=== PATIENT | male | born 2000 | race Caucasian/White ===

== ENCOUNTER → 2020-05-27 13:08 | Outpatient (BNVA) | payer BC, SELFPAY | PROVIDERS: Family Provider Family Medicine; Visit Provider Nurse Practitioner Family | DX: J02.9 Acute pharyngitis, unspecified (principal) | CPT/HCPCS: 87071; 87880 ==

== ENCOUNTER 2020-07-08 20:00 | Emergency (ER) | payer SELFPAY ==
[2020-07-08 20:41] VITALS: BP 136/72; PULSE 90; RESP 16; TEMP 36.4; O2SAT 100; BMI 22.1
--- NOTE | 2020-07-08 21:08 | XR_ITS ---
WS: [id number] EXAM: AP CHEST: PORTABLE UPRIGHT DATE OF EXAM: 07/08/2020, 2108 hours COMPARISON: NONE HISTORY: Patient is 20 years old with atraumatic chest pain that started today. FINDINGS: The cardiac silhouette is normal in size. The mediastinal contours are normal. The pulmonary vas cularity is normal. The lungs are clear of infiltrate. There is no effusion or pneumothorax. No ac [place] bony abnormality is seen. XR/XR chest 1V portable [id number] IMPRESSION: No acute pulmonary disease.
--- NOTE | 2020-07-08 21:08 | ECG_ITS ---
[facility] Test Date: 2020-07-08 Pat Name: Gilbert Melchor Department: Room: Gender: Male Strategy Analyst: : 2000 Requested By: Curt Chopra Order Number: [id number] Sekou MD: Jamie Lehman M.D. Measurements Intervals [place] Rate: 76 P: 68 MO: 158 QRS: 16 QRSD: 93 T: 64 QT: 352 QTc: 398 Interpretive Statements SINUS RHYTHM WITH SINUS ARRHYTHMIA MODERATE ST DEPRESSION [0.05+ mV ST DEPRESSION] No previous ECG available for comparison Electronically Signed On 07-09-2020 18:32:44 CDT by Jamie Lehman M.D. [email or web address].Smart Adventure/store/NU/[id number] f
[2020-07-08] MEDS: sodium chloride 0.9% 1,000 ML 999 ML IV (21:16)
[2020-07-08 21:24] LABS: Basophils # 0.1 10^3/uL (0.0-0.1); Basophils % 0.8 %; Eosinophils # 0.3 10^3/uL (0.0-0.8); Eosinophils % 3.2 %; Hematocrit 46.8 % (42.0-52.0); Hemoglobin 15.6 g/dL (11.7-16.6); Lymphocytes # 1.9 10^3/uL (0.8-4.8); Lymphocytes % 24.2 %; Mean Corpuscular HGB Conc 33.3 g/dL (30.0-36.0); Mean Corpuscular Hemoglobin 29.5 pg (28.0-34.0); Mean Corpuscular Volume 88.5 fL (80-94); Mean Platelet Volume 9.2 fL (7.4-10.4); Monocytes # 0.5 10^3/uL (0.2-0.9); Monocytes % 6.4 %; Neutrophils # 5.07 10^3/uL (1.8-7.7); Neutrophils % 65.3 %; Nucleated Red Blood Cells % 0 %; Platelet Count 212 10^3/cmm (130-400); Red Blood Count 5.29 10^6/uL (4.1-5.3); White Blood Count 7.8 10^3/uL (4.0-10.0)
[2020-07-08 21:45] LABS: D Dimer <= 0.27 ug/mIFEU (0-0.59)
[2020-07-08 21:48] LABS: Alanine Aminotransferase 20 U/L (0-41); Albumin Level 4.8 g/dL (3.5-5.2); Alkaline Phosphatase 81 IU/L (40-130); Anion Gap 13.7 (5-19); Aspartate Amino Transferase 17 U/L (0-40); Blood Urea Nitrogen 13 mg/dL (6-20); Calcium 8.7 mg/dL (8.5-10.5); Carbon Dioxide 26 mmol/L (22-29); Chloride 104 mmol/L (98-107); Creatine Phosphokinase 115 U/L (39-308); Globulin 2.9 g/dL (1.3-4.6); Glomerular Filtration Rate 105.5 mL/min (90-130); Glucose 105 mg/dL (65-115); Osmolality Calculated 287 mOsm/kg (285-295); Potassium 3.7 mmol/L (3.5-5.1); Sodium 140 mmol/L (136-145); Total Bilirubin 0.9 mg/dL (0.15-1.2); Total Protein 7.7 g/dL (6.6-8.7)
[2020-07-08 21:50] LABS: Troponin(5th) Baseline 6 ng/L (0-15)
[2020-07-08 21:53] VITALS: BP 122/68; PULSE 88; RESP 18; O2SAT 100
--- NOTE | 2020-07-08 22:02 | ED_ITS ---
HPI - Chest Pain General: Chief Complaint: Chest Pain Stated Complaint: chest pressure Time Seen by Provider: 07/08/20 20:51 History of Present Illness: HPI narrative: 20-year-old healthy male presents after period of heart palpitations, discomfort in his chest, and the feeling that he was going to pass out for a couple of minutes while he was working. 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 He is not had these sensations before, although he does note some occasional numbness in his left arm.. He denies any recent illness, including fever, cough, etc. He was not sick at his stomach. He was mildly short of breath. Symptoms are resolved now. MD complaint: chest discomfort Onset (ago): minute(s) Timing of current episode: now resolved Prior episodes: No Onset: during rest (Not complete rest) Pain location: substernal and left chest Pain radiation: left arm Quality: heaviness Relieving factors: nothing Exacerbating factors: nothing Associated symptoms: Reports palpitations; Deny abdominal pain, dyspnea, fever(s), leg edema, nausea, syncope or vomiting Treatment prior to arrival: none Review of Systems Const: Denies: fever(s) Eyes: Reports: change in vision ENMT: Denies: swelling of lips/tongue, bleeding gums, post nasal drip or sinus pain Card: Reports: palpitations; Denies: syncope Resp: Denies: dyspnea GI: Denies: abdominal pain, nausea or vomiting : Denies: difficulty urinating Musc: Denies: neck pain, back pain, joint redness or joint warmth Skin/Breast: Denies: rash, pruritus or erythema Neuro: Reports: dizziness; Denies: headache(s), vertigo or confusion Psych: Denies: anxiety PFS ED PFSH: Social History (Updated 05/27/20 @ 12:44 by Amarilis Fernandes LPN) Smoking and tobacco status: never smoked Alcohol intake: never Physical Exam Const: GENERAL APPEARANCE: well developed ORIENTATION/CONSCIOUSNESS: Yes oriented to person, Yes oriented to place and Yes oriented to time HENMT: COMMON NORMALS: normocephalic, external ears normal and Normal external nose present HEAD & SCALP: normocephalic FACE & SINUS: normal facial exam NOSE: Normal external nose present and No nasal discharge present EXTERNAL EAR: Yes external ears normal MOUTH: tongue normal Eye: COMMON NORMALS: Equal, round and reactive pupils present, EOMs intact bilaterally and conjunctivae normal EYELID: eyelids normal CONJUNCTIVA: Yes conjunctivae normal PUPIL: Yes Equal, round and reactive pupils present Neck/C-Spine: GENERAL: No tracheal deviation Chest: COMMONS NORMALS: normal inspection of the chest CHEST: No tenderness Resp: COMMON NORMALS: clear to auscultation bilaterally EFFORT & INSPECTION: No tachypneic, No respiratory distress, No retractions, No uses accessory muscles and No tracheal deviation AUSCULTATION: clear to auscultation bilaterally, no rhonchi, no wheezes and lung sounds not diminished Cardio: COMMON NORMALS: regular rate and regular rhythm RATE: regular rate RHYTHM: regular rhythm HEART SOUNDS: no murmurs PERIPHERAL PULSES: radial pulses present GI: INSPECTION: No abdominal distension AUSCULTATION: No Hyperactive bowel sounds present and No Hypoactive bowel sounds present PALPATION: No Guarding due to palpation present (GI) and No Rigid due to palpation PERCUSSION: no dullness to percussion and no tympanic to percussion Neuro: SENSORIUM/ORIENTATION: Yes oriented to person, Yes oriented to place and Yes oriented to time Psych: COMMON NORMALS: mental status grossly normal Skin: COMMON NORMALS: no rashes or lesions noted GENERAL SKIN EXAM: no r ashes or lesions noted Course Vital Signs: Vital signs: Vital Signs Temperature 97.5 F L 07/08/20 20:41 Pulse Rate 88 07/08/20 22:32 Respiratory Rate 18 07/08/20 22:32 Blood Pressure 122/68 07/08/20 22:32 Pulse Oximetry 100 07/08/20 22:32 MDM - Chest Pain MDM Narrative: Medical decision making narrative: Symptoms are resolved. In the differential would be a period of SVT that self resolved. Others include anxiety, or a different dysrhythmia. His d-dimer screen is negative. His EKG shows a sinus arrhythmia and is otherwise essentially normal. His rate is 75 he has a normal axis. His chest x-ray is normal. He will be allowed home for outpatient follow-up. Lab Data: Labs: Lab Results 07/08/20 07/08/20 07/08/20 Range/Units 21:10 21:10 21:10 WBC 7.8 (4.0-10.0) 10^3/ uL RBC 5.29 (4.1-5.3) 10^6/u L Hgb 15.6 (11.7-16.6) g/dL Hct 46.8 (42.0-52.0) % MCV 88.5 (80-94) fL MCH 29.5 (28.0-34.0) pg MCHC 33.3 (30.0-36.0) g/dL RDW 12.0 L (12.1-15.1) % Plt Count 212 (130-400) 10^3/c mm MPV 9.2 (7.4-10.4) fL Neut % (Auto) 65.3 % Lymph % (Auto) 24.2 % [place] % (Auto) 6.4 % Eos % (Auto) 3.2 % Baso % (Auto) 0.8 % Neut # (Auto) 5.07 (1.8-7.7) 10^3/u L Lymph # (Auto) 1.9 (0.8-4.8) 10^3/u L [place] # (Auto) 0.5 (0.2-0.9) 10^3/u L Eos # (Auto) 0.3 (0.0-0.8) 10^3/u L Baso # (Auto) 0.1 (0.0-0.1) 10^3/u L Nucleated RBC % (a uto) 0 % Nucleated RBCs # 0.0 /100WBC D-Dimer <= 0.27 (0-0.59) ug/mIFE U Sodium 140 (136-145) mmol/L Potassium 3.7 (3.5-5.1) mmol/L Chloride 104 (98-107) mmol/L Carbon Dioxide 26 (22-29) mmol/L Anion Gap 13.7 (5-19) BUN 13 (6-20) mg/dL Creatinine 0.9 (0.7-1.2) mg/dL GFR Calculation 105.5 (90-130) mL/min Glucose 105 (65-115) mg/dL Calculated Osmolal ity 287 (285-295) mOsm/k g Calcium 8.7 (8.5-10.5) mg/dL Total Bilirubin 0.9 (0.15-1.2) mg/dL AST 17 (0-40) U/L ALT 20 (0-41) U/L Alkaline Phosphata se 81 (40-130) IU/L Creatine Kinase 115 (39-308) U/L Troponin T Baselin e (0-15) ng/L Total Protein 7.7 (6.6-8.7) g/dL Albumin 4.8 (3.5-5.2) g/dL Globulin 2.9 (1.3-4.6) g/dL 07/08/20 Range/Units 21:10 WBC (4.0-10.0) 10^3/ uL RBC (4.1-5.3) 10^6/u L Hgb (11.7-16.6) g/dL Hct (42.0-52.0) % MCV (80-94) fL MCH (28.0-34.0) pg MCHC (30.0-36.0) g/dL RDW (12.1-15.1) % Plt Count (130-400) 10^3/c mm MPV (7.4-10.4) fL Neut % (Auto) % Lymph % (Auto) % [place] % (Auto) % Eos % (Auto) % Baso % (Auto) % Neut # (Auto) (1.8-7.7) 10^3/u L Lymph # (Auto) (0.8-4.8) 10^3/u L [place] # (Auto) (0.2-0.9) 10^3/u L Eos # (Auto) (0.0-0.8) 10^3/u L Baso # (Auto) (0.0-0.1) 10^3/u L Nucleated RBC % (a uto) % Nucleated RBCs # /100WBC D-Dimer (0-0.59) ug/mIFE U Sodium (136-145) mmol/L Potassium (3.5-5.1) mmol/L Chloride (98-107) mmol/L Carbon Dioxide (22-29) mmol/L Anion Gap (5-19) BUN (6-20) mg/dL Creatinine (0.7-1.2) mg/dL GFR Calculation (90-130) mL/min Glucose (65-115) mg/dL Calculated Osmolal ity (285-295) mOsm/k g Calcium (8.5-10.5) mg/dL Total Bilirubin (0.15-1.2) mg/dL AST (0-40) U/L ALT (0-41) U/L Alkaline Phosphata se (40-130) IU/L Creatine Kinase (39-308) U/L Troponin T Baselin e 6 (0-15) ng/L Total Protein (6.6-8.7) g/dL Albumin (3.5-5.2) g/dL Globulin (1.3-4.6) g/dL Discharge Plan Discharge Patient Disposition: Home Clinical Impression: Heart palpitations, Near syncope Condition: Stable Prescriptions: No Action No Known Home Medications RF: 0 Discharge Orders: Discharge Order (Routine); Ordered 07/08/20 Ordered By: Curt Zheng Referrals: Akash Mata MD [Primary Care Provider] - 4-7 days Discharge Diet: Usual diet Discharge Activity: Increase activity as tolerated Patient Instructions: Palpitations (ED), Near Syncope (ED) Activity Restrictions/Additional Instructions: Return for repeated episodes of a pounding heart, chest discomfort, shortness of breath, passing out, or nearly passing out. See your doctor in follow-up, as he may wish to perform other outpatient tests if your symptoms continue. Discharge Date/Time: 07/08/20 22:33 Coding Level of Care Code ED Fitness Teacher for Johana Fwd Exam Comprehensive
[2020-07-08 22:32] VITALS: BP 122/68; PULSE 88; RESP 18; O2SAT 100
== END 2020-07-08 22:33 | disposition home or self-care (01) ==
PROVIDERS: Emergency Provider Emergency Medicine; PCP Family Medicine
DX: R00.2 Palpitations (principal); R55 Syncope and collapse
CPT/HCPCS: 12345; 71045; 80053; 82550; 84484; 85025; 85378; 93005; 96360; 99283; 99284; J7030

== ENCOUNTER → 2020-09-26 11:51 | Outpatient (BNVA) | payer SELFPAY | PROVIDERS: PCP Family Medicine; Visit Provider Nurse Practitioner | DX: J02.0 Streptococcal pharyngitis (principal) | CPT/HCPCS: 87071; 87880 ==

== ENCOUNTER 2020-10-09 07:32 | Observation (INO) | payer SELFPAY ==
[2020-10-09] VITALS (22 sets, daily range): BP systolic 103–161; BP diastolic 61–94; PULSE 77–128; RESP 14–20; TEMP 36.6–38; O2SAT 94–99; BMI 23.6
--- NOTE | 2020-10-09 07:54 | XR_ITS ---
WS: [id number] ABDOMEN 1 VIEW(S) HISTORY: rlq PAIN ? STONE COMPARISON: None available. Normal bowel gas pattern. No suspicious calcifications or masses. No bone abnormality. XR/XR KUB [id number] IMPRESSION: Normal abdomen.
--- NOTE | 2020-10-09 07:55 | ED_ITS ---
HPI - Abdominal Pain General: Chief Complaint: Abdominal Pain Stated Complaint: ABD pain Time Seen by Provider: 10/09/20 07:34 Source: patient Mode of arrival: ambulatory Limitations: no limitations History of Present Illness: HPI narrative: 20-year-old pleasant, healthy- appearing male presents to the ED emergency department with acute onset of right lower quadrant pain. He reports sudden onset, occurred around midnight last night. States pain feels like bad gas, he denies diarrhea or fever, reports chills, reports nausea but due to pain. He denies pain upon exam as he is at rest, rest helps relieve pain. He denies history of abdominal surgeries. Reports last ate at 11 PM had a small sip of water this morning. Did not take [id number] medication for symptom relief. Reports history of dysuria as a teenager, reports went to [place] for work-up without acute findings with resolution of symptoms. He is not able to give detailed information of this history. MD elicited complaint: abdominal pain and flank pain Pertinent past history: past UTI Onset (ago): hour(s) (7-8) Pain Consistency: intermittent Location: RLQ and R flank Severity: moderate Quality: aching and dull Radiation: RLQ and R flank Relieving factors: rest Associated Symptoms: Reports chills and nausea; Denies change in bowel habits, constipation, diarrhea, dysuria, fever(s) and heartburn Review of Systems General: Reports: 10 or more systems reviewed and unremarkable except in HPI and below Const: Reports: chills; Denies: fever(s), body aches, change in appetite, fatigue or malaise Eyes: Denies: blurry vision or eye redness ENMT: Denies: throat pain, dental pain or disequilibrium Card: Denies: chest pain, palpitations or irregular heart rhythm Resp: Denies: dyspnea, productive cough, non-productive cough or wheezing GI: Reports: abdominal pain (rlq) and nausea; Denies: heartburn, diarrhea, constipation or change in bowel habits : Denies: difficulty urinating, dysuria or difficulty starting urination Musc: Denies: back pain Skin/Breast: Denies: rash or pruritus Neuro: Denies: headache(s), weakness in extremities or behavioral changes Psych: Denies: anxiety or depression Estu[place]/Lymph: Denies: easy bruising PFSH ED PFSH: Social History Smoking and tobacco status: never smoked Alcohol intake: never Physical Exam Const: COMMON NORMALS: no acute distress, patient oriented x3, healthy appearing and alert GENERAL APPEARANCE: cooperative, comfortable and well hydrated HENMT: COMMON NORMALS: normocephalic, Normal external nose present and moist oral mucous membranes HEAD & SCALP: normocephalic NOSE: Normal external nose present Eye: COMMON NORMALS: Equal, round and reactive pupils present and EOMs intact bilaterally GENERAL EYE: appearance normal, both eyes and all related structures PUPIL: Yes Equal, round and reactive pupils present Neck/C-Spine: COMMON NORMALS: full ROM and no lymphadenopathy GENERAL: Yes normal visual inspection and Yes trachea midline CERVICAL SPINE: Yes cervical ROM normal Lymph: LYMPHATIC: no lymphadenopathy noted Chest: COMMONS NORMALS: normal inspection of the chest and normal palpation of entire chest wall Resp: COMMON NORMALS: normal respiratory effort, No retractions, No use of accessory muscles and clear to auscultation bilaterally EFFORT & INSPECTION: Yes able to speak in complete sentences AUSCULTATION: clear to auscultation bilaterally Cardio: COMMON NORMALS: regular rhythm, S1 normal heart sound present, S2 normal heart sound present and Peripheral pulses 2+ throughout RHYTHM: regular rhythm HEART SOUNDS: S1 normal heart sound present and S2 normal heart sound present PERIPHERAL PULSES: Peripheral pulses 2+ throughout GI: COMMON NORMALS: Normal to inspection, nondistended, normoactive bowel sounds present and Soft to palpation INSPECTION: Yes normal to inspection, No abdominal distension, No incision, No central obesity, No scar and No visible herniation AUSCULTATION: Yes normoactive bowel sounds PALPATION: Yes Soft to palpation, Yes Tenderness to palpation present (GI) Details: RLQ, No Hepatosplenomegaly present, No Hernia present, Yes Rebound tenderness present and Yes Other GI palpation findings present (Positive Stepan, positive McBurney's, negative Ryan's) : BLADDER/KIDNEY EXAM: Yes bladder normal to palpation Back/Pelvis: COMMON NORMALS: thoracic and lumbar spine normal to inspection, no thoracic nor lumbar tenderness, thoraco-lumbar ROM normal and straight leg raise negative bilaterally GENERAL BACK: Yes CVA tenderness CVA tenderness: right Extremity: COMMON NORMALS: normal to inspection and capillary refill normal Neuro: COMMON NORMALS: patient oriented x3 and no focal motor deficits SENSORIUM/ORIENTATION: Yes alert Psych: COMMON NORMALS: mental status grossly normal, Normal thought process present and cooperative ACTIVITY/MOTOR BEHAVIOR: Yes appropriate eye contact THOUGHT PROCESS: Normal thought process present Skin: COMMON NORMALS: no rashes or lesions noted and turgor normal GENERAL SKIN EXAM: no rashes or lesions noted and turgor normal Course Consultations: Consultation #1: Dr Mahtew, serology and CT results indicating appendicitis discussed, advised to admit to observation under his direction, lactated Ringer's 1 L bolus then 150 mL/h, Zosyn 3.375 every 8 hours, patient to be n.p.o. status with appropriate pain control. Time: 09:05 Vital Signs: Vital signs: Vital Signs Temperature 100.4 F H 10/09/20 12:37 Pulse Rate 128 H 10/09/20 12:37 Respiratory Rate 20 H 10/09/20 12:37 Blood Pressure 132/83 10/09/20 12:37 Pulse Oximetry 99 10/09/20 12:37 MDM - Abdominal Pain Differential Diagnosis: Differential diagnosis abdominal pain: Likely abdominal pain, acute appendicitis and calculus of kidney Lab Data: Labs: Lab Results 10/09/20 10/09/20 10/09/20 Range/Units 08:05 08:05 08:15 WBC 14.6 H (4.0-10.0) 10^3/ uL RBC 5.25 (4.1-5.3) 10^6/u L Hgb 15.7 (11.7-16.6) g/dL Hct 46.3 (42.0-52.0) % MCV 88.2 (80-94) fL MCH 29.9 (28.0-34.0) pg MCHC 33.9 (30.0-36.0) g/dL RDW 11.7 L (12.1-15.1) % Plt Count 186 (130-400) 10^3/c mm MPV 9.1 (7.4-10.4) fL Neut % (Auto) 85.0 % Lymph % (Auto) 8.0 % [place] % (Auto) 5.9 % Eos % (Auto) 0.6 % Baso % (Auto) 0.2 % Neut # (Auto) 12.42 H (1.8-7.7) 10^3/u L Lymph # (Auto) 1.2 (0.8-4.8) 10^3/u L [place] # (Auto) 0.9 (0.2-0.9) 10^3/u L Eos # (Auto) 0.1 (0.0-0.8) 10^3/u L Baso # (Auto) 0.0 (0.0-0.1) 10^3/u L Nucleated RBC % (a uto) 0 % Nucleated RBCs # 0.0 /100WBC Sodium 139 (136-145) mmol/L Potassium 3.5 (3.5-5.1) mmol/L Chloride 101 (98-107) mmol/L Carbon Dioxide 26 (22-29) mmol/L Anion Gap 15.5 (5-19) BUN 10 (6-20) mg/dL Creatinine 0.9 (0.7-1.2) mg/dL GFR Calculation 105.5 (90-130) mL/min Glucose 148 H (65-115) mg/dL Calculated Osmolal ity 290 (285-295) mOsm/k g Calcium 9.1 (8.5-10.5) mg/dL Total Bilirubin 0.7 (0.15-1.2) mg/dL AST 25 (0-40) U/L ALT 37 (0-41) U/L Alkaline Phosphata se 85 (40-130) IU/L Total Protein 7.1 (6.6-8.7) g/dL Albumin 4.4 (3.5-5.2) g/dL Globulin 2.7 (1.3-4.6) g/dL Lipase 21 (13-60) U/L Urine Color Yellow (Yellow) Urine Appearance Clear (CLEAR) Urine pH 5 (5-7) Ur Specific Gravit y 1.020 (1.005-1.030) Urine Protein Neg (Negative) Urine Glucose (UA) Norm (Normal) Urine Ketones 1+ H (Negative) Urine Blood Neg (Negative) Urine Nitrate Negative (Negative) Urine Bilirubin Neg (Negative) Urine Urobilinogen 1 H (Negative) mg/dL Ur Leukocyte Kymberly ase Negative (Negative) Imaging Data ^: KUB: Radiologist's impression: [address] [place] [address] XRay Report Signed Patient: Gilbert Melchor Unit #: [id number] : 2000 Age/Sex: 20 / M ADM Date: 10/09/20 Loc: ER Room/Bed: Attending Dr: Ordering Provider/Ordering MD: Priscila Cruz Date of Service: 10/09/20 Procedure(s): XR KUB [id number] Accession Number(s): [id number] Report Number: [id number] WS: [id number] ABDOMEN 1 VIEW(S) HISTORY: rlq PAIN ? STONE COMPARISON: None available. Normal bowel gas pattern. No suspicious calcifications or masses. No bone abnormality. XR/XR KUB [id number] IMPRESSION: Normal abdomen. Dictated By: Barbara Rodriguez DO Signed By: Barbara Rodriguez DO Signed Date/Time: 10/09/20814 DD/ 4 CT Abd/Pel: Radiologist's impression: [place] [address] CT Scan Report Signed Patient: Gilbert Melchor Unit #: [id number] : 2000 Age/Sex: 20 / M ADM Date: Loc: ER Room/Bed: Attending Dr: Ordering Provider/Ordering MD: Priscila Cruz Date of Service: 10/09/20 Procedure(s): CT abdomen pelvis w con* [id number] Accession Number(s): [id number] Report Number: [id number] WS: [id number] CT ABDOMEN AND PELVIS WITH CONTRAST HISTORY: RLQ pain, ? Appendicitis vs small stone TECHNIQUE: Imaging performed of the abdomen and pelvis with IV contrast. Single phase imaging of the abdomen. Coronal and sagittal reformats are submitted. All CT scans at [facility] use at least one of these dose optimization techniques: automated exposure control; mA and/or kV adjustment per patient size (includes targeted exams where dose is matched to clinical indication); or iterative reconstruction. IV CONTRAST: Omnipaque 300; 95 mL IV. Oral contrast: No DLP: 366.06 mGy.cm COMPARISON: 06/07/2009 Lower thorax: Lung bases are clear. Heart is normal size. No hiatal hernia. Liver/biliary system: Normal size with no intrahepatic dilatation. Gallbladder: Normal. No gallstones or wall thickening. No pericholecystic fluid. Pancreas: Normal. Spleen: 12.7 cm in length. No mass. Adrenal glands: Normal. Right kidney: Normal. Left kidney: Normal. Aorta: Normal. Lymphadenopathy: None. Free fluid: There is a very small amount of fluid in the RIGHT lower quadrant and central pelvis. GI tract: Hyperemic dilated appendix. Appendix measures 8.6 mm with mild periappendiceal stranding. No abscess. Abdominal wall: Unremarkable abdominal wall. No hernia. Pelvis: Normal. Bones: Thoracolumbar scoliosis. CT/CT abdomen pelvis w con* [id number] IMPRESSION: 1. Acute appendicitis without evidence for rupture or abscess. 2. No renal stone or obstruction. Dictated By: Barbara Rodriguez DO Signed By: Barbara Rodriguez DO Signed Date/Time: 10/09/20 0859 DD/ 0855 Discharge Plan Discharge Condition: Good Coding Level of Care Code ED Sales Support Administrator for Chg Fwd Exam Comprehensive
[2020-10-09 08:09] LABS: Basophils % 0.2 %; Eosinophils # 0.1 10^3/uL (0.0-0.8); Eosinophils % 0.6 %; Hematocrit 46.3 % (42.0-52.0); Hemoglobin 15.7 g/dL (11.7-16.6); Lymphocytes # 1.2 10^3/uL (0.8-4.8); Mean Corpuscular HGB Conc 33.9 g/dL (30.0-36.0); Mean Corpuscular Hemoglobin 29.9 pg (28.0-34.0); Mean Corpuscular Volume 88.2 fL (80-94); Mean Platelet Volume 9.1 fL (7.4-10.4); Monocytes # 0.9 10^3/uL (0.2-0.9); Monocytes % 5.9 %; Neutrophils # 12.42 10^3/uL (1.8-7.7); Nucleated Red Blood Cells % 0 %; Platelet Count 186 10^3/cmm (130-400); Red Blood Count 5.25 10^6/uL (4.1-5.3); Red Cell Distribution Width 11.7 % (12.1-15.1); White Blood Count 14.6 10^3/uL (4.0-10.0)
--- NOTE | 2020-10-09 08:12 | CT_ITS ---
WS: [id number] CT ABDOMEN AND PELVIS WITH CONTRAST HISTORY: RLQ pain, ? Appendicitis vs small stone TECHNIQUE: Imaging performed of the abdomen and pelvis with IV contrast. Single phase imaging of the abdomen. Coronal and sagittal reformats are submitted. All CT scans at [facility] use at least one of these dose optimization techniques: automated exposure control; mA and/or kV adjustment per patient size (includes targeted exams where dose is matched to clinical indication); or iterativ e reconstruction. IV CONTRAST: Omnipaque 300; 95 mL IV. Oral contrast: No DLP: 366.06 mGy.cm COMPARISON: 06/07/2009 Lower thorax: Lung bases are clear. Heart is normal size. No hiatal hernia. Liver/biliary system: Normal size with no intrahepatic dilatation. Gallbladder: Normal. No gallstones or wall thickening. No pericholecystic fluid. Pancreas: Normal. Spleen: 12.7 cm in length. No mass. Adrenal glands: Normal. Right kidney: Normal. Left kidney: Normal. Aorta: Normal. Lymphadenopathy: None. Free fluid: There is a very small amount of fluid in the RIGHT lower quadrant and central pelvis. GI tract: Hyperemic dilated appendix. Appendix measures 8.6 mm with mild periappendiceal stranding. N o abscess. Abdominal wall: Unremarkable abdominal wall. No hernia. Pelvis: Normal. Bones: Thoracolumbar scoliosis. CT/CT abdomen pelvis w con* [id number] IMPRESSION: 1. Acute appendicitis without evidence for rupture or abscess. 2. No renal stone or obstruction.
[2020-10-09] MEDS: ondansetron 2 mg/ML SDV 2 mL 4 MG IVP (08:21)
[2020-10-09] MEDS: sodium chloride 0.9% 1,000 ML 150 ML IV (08:22)
[2020-10-09 08:26] LABS: Alanine Aminotransferase 37 U/L (0-41); Albumin Level 4.4 g/dL (3.5-5.2); Alkaline Phosphatase 85 IU/L (40-130); Anion Gap 15.5 (5-19); Aspartate Amino Transferase 25 U/L (0-40); Blood Urea Nitrogen 10 mg/dL (6-20); Calcium 9.1 mg/dL (8.5-10.5); Carbon Dioxide 26 mmol/L (22-29); Chloride 101 mmol/L (98-107); Globulin 2.7 g/dL (1.3-4.6); Glomerular Filtration Rate 105.5 mL/min (90-130); Glucose 148 mg/dL (65-115); Lipase 21 U/L (13-60); Osmolality Calculated 290 mOsm/kg (285-295); Potassium 3.5 mmol/L (3.5-5.1); Sodium 139 mmol/L (136-145); Total Bilirubin 0.7 mg/dL (0.15-1.2); Total Protein 7.1 g/dL (6.6-8.7)
[2020-10-09 08:28] LABS: Add Urine Microscopic? NO
[2020-10-09] MEDS: iohexol 300 mg/mL 100 mL Btl IV (08:40)
[2020-10-09 08:45] LABS: Bilirubin Urine Neg (Negative); Blood Urine Neg (Negative); Glucose Urine UA Norm (Normal); Ketones Urine 1+ (Negative); Leukocyte Esterase Urine Negative (Negative); Nitrate Urine Negative (Negative); Protein Urine Neg (Negative); Urine Appearance Clear (CLEAR); Urine Color Yellow (Yellow); Urobilinogen Urine 1 mg/dL (Negative); pH Urine 5 (5-7)
[2020-10-09] MEDS: lactated ringers 1,000 ML 150 ML IV (09:25)
[2020-10-09] MEDS: piperacillin-tazobactam 3.375 GM in sodium chloride 0.9% (plus) 50 ML IV ×2 (09:27→17:15)
[2020-10-09] MEDS: morphine 4 mg/mL SDV 1 mL 2 MG IVP ×2 (09:27→23:15)
--- NOTE | 2020-10-09 12:33 | P.ANESASSM_ITS ---
Pre-Anesthetic Assessment Pre-Anesthetic Assessment: Height/Weight: Height 1.75 m Weight 72.575 kg Temp Pulse Resp BP Pulse Ox 98.9 F 115 H 18 133/77 98 10/09/20 12:12 10/09/20 12:12 10/09/20 12:12 10/09/20 12:12 10/09/20 12:12 Preop Diagnosis: Acute appendicitis Proposed Procedure: Operation Date: 10/09/20 13:30 Proposed Procedures p Laparoscopic Appendectomy(Not Applicable) - Juan Love MD Familial anesthetic complications: none Was Beta Tanner taken within 24 hours: N/A Last intake: NPO > 8 hrs Social: Social History: No alcohol and No tobacco Exam: Pre-Anes Outpt Exam: alert, oriented x 3, clear to auscultation bilaterally and regular rate & rhythm Airway: Cervical ROM: WNL MP: 2 Dentition: Full CV/HEM: CV/HEM: Palp Anesthetic Plan: ASA status: 1 Anesthesia: General Risk of > 500 ml blood loss (7ml/kg in children): No Meds/Allergies Current Medications: Current Medications Generic Name Dose Route Start Last Admin Trade Name Freq PRN Reason Stop Dose Admin Sodium Chloride 1,000 mls @ 150 m ls/hr 10/09/20 08:00 10/09/20 08:22 Sodium Chloride 0.9% IV 150 mls/hr .[id number] MIRNA Administration Lactated Ringer's 1,000 mls @ 150 m ls/hr 10/09/20 09:15 10/09/20 11:17 Lactated Ringers IV 150 mls/hr .[id number] MIRNA Infusion PFSH Anesthesia PFSH: Social History Smoking and tobacco status: never smoked Alcohol intake: never Data Anesthesia CBC & Chem 7: 10/09/20 08:05 10/09/20 08:05 Other Labs: Laboratory Results - last 48 hr 10/09/20 10/09/20 10/09/20 08:05 08:05 08:15 WBC 14.6 H RBC 5.25 Hgb 15.7 Hct 46.3 MCV 88.2 MCH 29.9 MCHC 33.9 RDW 11.7 L Plt Count 186 MPV 9.1 Neut % (Auto) 85.0 Lymph % (Auto) 8.0 [place] % (Auto) 5.9 Eos % (Auto) 0.6 Baso % (Auto) 0.2 Neut # (Auto) 12.42 H Lymph # (Auto) 1.2 [place] # (Auto) 0.9 Eos # (Auto) 0.1 Baso # (Auto) 0.0 Nucleated RBC % (auto) 0 Nucleated RBCs # 0.0 Sodium 139 Potassium 3.5 Chloride 101 Carbon Dioxide 26 Anion Gap 15.5 BUN 10 Creatinine 0.9 GFR Calculation 105.5 Glucose 148 H Calculated Osmolality 290 Calcium 9.1 Total Bilirubin 0.7 AST 25 ALT 37 Alkaline Phosphatase 85 Total Protein 7.1 Albumin 4.4 Globulin 2.7 Lipase 21 Urine Color Yellow Urine Appearance Clear Urine pH 5 Ur Specific [place] 1.020 Urine Protein Neg Urine Glucose (UA) Norm Urine Ketones 1+ H Urine Blood Neg Urine Nitrate Negative Urine Bilirubin Neg Urine Urobilinogen 1 H Ur Leukocyte Esterase Negative Cardiac Studies: No Data to Display
--- NOTE | 2020-10-09 12:38 | P.HP_ITS ---
Providers/Chief Complaint Primary Care Provider: Akash Mata MD Chief Complaint: ABD pain History of Present Illness Gilbert Melchor is a 20 year old male presents to the emergency department with worsening abdominal pain that started around 11 PM yesterday around the [facility] and shifted to the right lower quadrant. Patient reports nausea but no vomiting and he denies any other constitutional symptoms. And he never had this pain before. Pain is mostly sharp in the right lower quadrant not being referred. Denies dysuria or loose stools Further work-up in the emergency department the form of the blood work showed leukocytosis and a CT scan of the abdomen and pelvis that showed: Liver/biliary system: Normal size with no intrahepatic dilatation. Gallbladder: Normal. No gallstones or wall thickening. No pericholecystic fluid. Pancreas: Normal. Spleen: 12.7 cm in length. No mass. Adrenal glands: Normal. Right kidney: Normal. Left kidney: Normal. Aorta: Normal. Lymphadenopathy: None. Free fluid: There is a very small amount of fluid in the RIGHT lower quadrant and central pelvis. GI tract: Hyperemic dilated appendix. Appendix measures 8.6 mm with mild periappendiceal stranding. No abscess. Abdominal wall: Unremarkable abdominal wall. No hernia. Pelvis: Normal. Bones: Thoracolumbar scoliosis. CT/CT abdomen pelvis w con* [id number] IMPRESSION: 1. Acute appendicitis without evidence for rupture or abscess. 2. No renal stone or obstruction. Review of Systems General: Reports: 10 or more systems reviewed and unremarkable except in HPI and below Medications/Allergies Home Medications Medication Instructions Recorded Confirmed Last Taken Type escitalopram oxalate 10 mg tablet 10 mg PO DAILY 09/26/20 10/09/20 10/08/20 History Allergies Allergy/AdvReac Type Severity Reaction Status Date / Time No Known Allergies Allergy Verified 10/09/20 12:39 PFSH Acute PFSH: Social History Smoking and tobacco status: never smoked Alcohol intake: never Vitals/I&O/Wt Last Vital Signs Temp 100.4 F H 10/09/20 12:37 Pulse 128 H 10/09/20 12:37 Resp 20 H 10/09/20 12:37 BP 132/83 10/09/20 12:37 Pulse Ox 99 10/09/20 12:37 10/08/20 10/09/20 10/09/20 22:59 06:59 14:59 Intake Total 280 / 280 Balance 280 / 280 Weight last 48 hrs Weight 160 lb Physical Exam Narrative: EXAM NARRATIVE: Patient is conscious alert oriented X3 BMI 24 Head and neck examination PERRLA no masses no cervical lymphadenopathy no jaundice Cardiac examination audible S1-S2 no murmurs no gallops no arrhythmias Chest is clear bilateral,abscence of Rhonchi or wheezes,no surgical emphysema Abdomen right lower quadrant tenderess with localized guarding and rigidity nondistended soft no organomegaly guarding or rigidity/no signs of peritonitis Extremities no cyanosis no clubbing no edema Data : 10/09/20 08:05 10/09/20 08:05 A&P Assessment and plan (1) Acute appendicitis: After thorough history physical examination and reviewing the chart and images with my personal interpretion, I counseled the patient for laparoscopic appendectomy possible open. Indications, risks, benefits and alternatives were all discussed with the patient and did agree to proceed. Rationale was carefully and clearly discussed with the patient.Appropriate informed consent have been reviewed and signed Status: Acute Attestations Medical Necessity Statement*: Observation status for pain control and repeat blood work in the morning Time Spent in Patient Care: (>than 50% of time spent in counselling and/or direct pt care on unit) . Coding Level of Care Code Acute Manager Of Organizational Development for Johana Macias Diagnoses Acute appendicitis K35.80
[2020-10-09] MEDS: sodium chloride 0.9% 1,000 ML 30 ML IV (12:40)
[2020-10-09] MEDS: lidocaine 2% INJ 20 mL INJECTION (15:02)
--- NOTE | 2020-10-09 15:16 | P.OP_ITS ---
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 Indications, risks, benefits and alternatives were all discussed with the patient and did agree to proceed. Rationale was carefully and clearly discussed with the patient.Appropriate informed consent have been reviewed and signed Procedure: Patient after being identified in the holding area and asked to void urine, and informed consent per chart ,patient was then taken back to the OR placed in supine position got intubated by anesthesia left arm was tucked tucked ,Timeout was done verifying the patient's name/date of /planned procedure and destination after the procedure, all were in agreement., preoperative antibiotics administered per protocol. prep and drape of the abdomen was done under the usual sterile technique. Started by longitudinal skin incision supraumbilical using a Davila trocar technique safe entry to the abdominal cavity was achieved verified by using 10 mm zero degree laparoscopy, switched to a 30? scope under direct visualization a suprapubic 5 mm trocar was inserted followed by another 5 mm trocar inserted in the left lower quadrant, I was able to position the patient in an T George and left side down, dissection of the prececal acutely inflamed appendix there was some adhesions towards the lateral pelvic wall that was taken down by sharp and blunt dissection, attention was deviated to the healthy base of the appendix where I had to switch the camera to 5 mm 30? scope got introduced through the left lower quadrant and through the Davila trocar under direct visualization a G I stapler 45 mm blue load was applied at the healthy part of the base of the appendix, and an Endoloop PDS was applied onto the mesoappendix for control , the appendix was then retrieved in an Endo Catch bag, final survey was done of the abdomen and pelvis , irrigation with warm saline, and suction was obtained. 5 mm clips were applied onto the mesoappendix as well as the appendectomy staple line and a right lateral pelvic wall for minimal oozing. Final look laparoscopy was done showing no other abnormalities or injuries, all trocars were taken out under direct visualization after the supraumblical trocar site was closed by #1 PDS sutures under direct vision using fascial closure device ,followed by 3-0 Vicryl for deep subdermal then skin closure using 4-0 Monocryl of all trocar site incisions. infiltration of local lidocaine 2% was done to all incision sites.Dry dressing was applied. Count was completed at the end of the procedure for Terrell , sponges and instruments Patient tolerated the procedure well and was transferred to the recovery area after extubation. I was present for the whole entire procedure
--- NOTE | 2020-10-09 16:40 | ANE.PACU2 ---
Inpatient post-anesthesia follow up: Airway intact: Yes Vital signs: Temperature 98.9 F Pulse Rate [Left] 108 Pulse Rate 67 Respiratory Rate 16 Blood Pressure [Le ft Arm] 132/70 Blood Pressure 124/68 Pulse Oximetry 97 Oxygen Delivery Me thod Room Air Oxygen Flow Rate Fraction of Inspir ed Oxygen Hydration adequate: Yes Nausea and vomiting: No Pain level: 3 Mental status: Baseline
[2020-10-09] MEDS: HYDROcodone-acetaminophen 5-325 mg Tablet 1 TAB PO (18:00)
[2020-10-10] VITALS: BP 143/81; PULSE 91; RESP 17; TEMP 37.1; O2SAT 95
[2020-10-10] MEDS: piperacillin-tazobactam 3.375 GM in sodium chloride 0.9% (plus) 50 ML IV ×2 (01:00→08:02)
[2020-10-10 02:53] LABS: Basophils % 0.1 %; Hematocrit 42.1 % (42.0-52.0); Hemoglobin 14.2 g/dL (11.7-16.6); Lymphocytes # 0.6 10^3/uL (0.8-4.8); Lymphocytes % 5.5 %; Mean Corpuscular HGB Conc 33.7 g/dL (30.0-36.0); Mean Platelet Volume 9.5 fL (7.4-10.4); Monocytes # 0.6 10^3/uL (0.2-0.9); Neutrophils # 10.07 10^3/uL (1.8-7.7); Nucleated Red Blood Cells % 0 %; Platelet Count 201 10^3/cmm (130-400); Red Blood Count 4.73 10^6/uL (4.1-5.3); Red Cell Distribution Width 11.8 % (12.1-15.1); White Blood Count 11.3 10^3/uL (4.0-10.0)
[2020-10-10 02:55] LABS: Anion Gap 13.8 (5-19); Blood Urea Nitrogen 6 mg/dL (6-20); Calcium 8.9 mg/dL (8.5-10.5); Carbon Dioxide 26 mmol/L (22-29); Chloride 104 mmol/L (98-107); Glucose 137 mg/dL (65-115); Osmolality Calculated 290 mOsm/kg (285-295); Potassium 3.8 mmol/L (3.5-5.1); Sodium 140 mmol/L (136-145)
[2020-10-10 04:00] VITALS: BP 127/79; PULSE 80; RESP 17; TEMP 36.9; O2SAT 97
[2020-10-10] MEDS: HYDROcodone-acetaminophen 5-325 mg Tablet 1 TAB PO (04:54)
--- NOTE | 2020-10-10 05:37 | P.SS_ITS ---
Short Stay Summary Providers Date of Admit/Discharge: 10/10/20 Attending Provider: Jaun Love MD Primary Care Provider: Akash Mata MD Chief Complaint: ABD pain HPI History of Present Illness Gilbert Melchor is a 20 year old male presented to the emergency department with worsening abdominal pain and was found to have acute appendicitis on the CT scan. General surgery was consulted for surgical intervention. Review of Systems General: Reports: 10 or more systems reviewed and unremarkable except in HPI and below Home Meds/Allergies Home Medications and Allergies Home Medications Medication Instructions Recorded Confirmed Type escitalopram oxalate 10 mg tablet 10 mg PO DAILY 09/26/20 10/09/20 History Allergies Allergy/AdvReac Type Severity Reaction Status Date / Time No Known Allergies Allergy Verified 10/09/20 12:39 PFSH Acute PFSH: Medical History Acute appendicitis Social History Smoking and tobacco status: never smoked Alcohol intake: never Vitals/I&O/Wt Last Vital Signs Temp 98.4 F 10/10/20 04:00 Pulse 80 10/10/20 04:00 Resp 17 10/10/20 04:00 BP 127/79 10/10/20 04:00 Pulse Ox 97 10/10/20 04:00 10/09/20 10/09/20 10/10/20 14:59 22:59 06:59 Intake Total 1280 / 1280 1160 / 2440 502 / 2942 Output Total 900 / 900 425 / 1325 Balance 380 / 380 735 / 1115 502 / 1617 Weight last 48 hrs Weight 160 lb Physical Exam Narrative: EXAM NARRATIVE: Patient is conscious alert oriented X3 BMI 23.6 Head and neck examination PERRLA no masses no cervical lymphadenopathy no jaundice Abdomen nontender except at the incision sites, nondistended soft no organomegaly guarding or rigidity/no signs of peritonitis Extremities no cyanosis no clubbing no edema Hospital Course Discharge Summary This is a pleasant 20 years old gentleman undergone uneventful laparoscopic appendectomy for acute appendicitis. Patient continued to be appropriate after surgery with stable vital signs and urine output within normal limits. will plan to advance his diet to full liquids and have the patient discharged on oral antibiotics today and follow-up with me in 10 days at my surgery office. Patient prior to discharge tolerated p.o. intake and passed gas No acute events overnight SSS Data Data Completed and Pending: Completed Studies During Hospitalization Category Date Time Status CT abdomen pelvis w con* [id number] Urge nt Cat Scan 10/09/20 08:12 Completed XR KUB [id number] Urge nt Exams 10/09/20 07:54 Completed Pending at discharge Category Date Time Status ES surgery / GI i mages Routine Exams 10/09/20 13:37 Taken Basic Metabolic P anthony AM LABS Lab 10/11/20 04:00 Ordered Basic Metabolic P anthony AM LABS Lab 10/12/20 04:00 Ordered Complete Blood Co unt w/Auto AM LABS Lab 10/11/20 04:00 Ordered Complete Blood Co unt w/Auto AM LABS Lab 10/12/20 04:00 Ordered Pathology: Surgic al [PTH] Routine Pth 10/09/20 15:03 Ordered Diagnoses at Discharge Discharge Diagnosis (1) Acute appendicitis: Status: Resolved Permanent problem details: Condition resolved and will plan to discharge patient home today Trending down and leukocytosis and will have the patient on antibiotics for 7 days after surgery Pain medication upon discharge Discharge Plan Discharge Patient Disposition: Home Condition: Stable Prescriptions: New [place] 5-325 mg tablet 1 tab PO Q6H PRN (Reason: pain) Qty: 28 RF: 0 Augmentin 875-125 mg tablet 1 tab PO BID 7 Days Qty: 14 RF: 0 Continued escitalopram oxalate [Lexapro] 10 mg tablet 10 mg PO DAILY RF: 0 Discharge Orders: Discharge Order (Routine); Ordered 10/10/20 Ordered By: Juan Love Referrals: Juan Love MD [Physician] - 10/19/20 9:30 am (Return to surgery office in 10 days) Discharge Diet: Full LIquid Discharge Activity: Limit activity as instructed Patient Instructions: Hydrocodone/Acetaminophen (By mouth), Amoxicillin/Clavulanate Potassium (By mouth), Appendicitis (DC) Activity Restrictions/Additional Instructions: 1. Patient can shower after 48 hours from surgery 2. Remove Dermabond 7 to 10 days after surgery, if there is a secondary dressing can take down after 48 hours. 3. Up and walking as tolerated 4. Do lift more than 5 pounds first 2 weeks after surgery and not more than 25 pounds 6 to 8 weeks after surgery. 5. Do not operate heavy machinery or drive while using pain medications. 6.Contact the office or return to the ER for worsening nausea vomiting fevers or chills, or noticing any redness around incision sites or discharge. Attestations Medical Necessity Statement*: Observation overnight for pain control Time Spent in Patient Care*: less than 30 min Specific Discharge Activities: Specific discharge activities: educating patient Status at Discharge: Cognitive status at discharge: cognitively intact , Behavioral status at discharge: cooperative , Functional status at discharge: independent ambulation Overall status at discharge: patient is progressing back to baseline Quality Metrics Clinical Quality Measures: During this hospital stay, did patient experience: None Coding Level of Care Code Acute Mercury Recoverer for Johana Macias Diagnoses Acute appendicitis K35.80
[2020-10-10] MEDS: lactated ringers 1,000 ML 999 ML IV (06:04)
[2020-10-10 08:00] VITALS: BP 124/68; PULSE 67; RESP 16; TEMP 37.2; O2SAT 97
[2020-10-10] MEDS: psyllium powder Pkt 1 PACKET PO (08:02)
--- NOTE | 2020-10-10 08:06 | PC.NURSE ---
pt able to pass flatus this am and is A/Ox4. pt states he feels a bit sore, but is denying pain medications at this time. pt is sitting up and is eating breakfast during am assessment.
--- NOTE | 2020-10-10 08:39 | PC.CHAP ---
Pastoral Care Encounter/Spiritual Assessment Type of Contact [] Declined ciso visit [] Patient/Family/Request visit [] Outpatient visit [] Follow-up visit [] Physician referral [] Code/Alert [] Routine visit [] Staff referral [] Actively dying [] Patient sleeping [] Family support [] [] Out of room [] Palliative care [] [] Receiving care in room [] Pre-surgical visit [] Trauma [] Long length of stay [] ICU visit [] Other: Relational/Emotional Strength [x] Patient feels connected with others/family/visitors/staff [] Distress [] Loneliness/isolation [] Abandonment Spirituality of Patient [x] Person of [place] [x] Attends Rastafarian of their [place] [] Believes in Prayer [] Reads Bible or Oriental Orthodox materials [] There are Spiritual issues to be addressed Signal And Communications Maintainer Interventions [x] Prayer [] Active listening [] Non-anxious presence [] Spiritual/emotional support [] Crisis/trauma care [] Spiritual counseling [] Bereavement support [] Provided bereavement packet [] Provided Bible/devotional materials [] Provided toy/stuffed animal, coloring book to patient or family member [] Provided Communion [] Anointing/[place] [] Salvation [x] Completed spiritual assessment [] Other: Impact on Illness or Injury [] Angry [] Fearful [] Anxious [] Often cries [] Exhaustion [] Unable to work [] Unable to attend scientology [] Unable to walk/stand [] Unable to read [] Unable to drive [] Unable to eat/drink [] Unable to sleep [] Unable to be with family [] Patient intubated [] Other: Summary patient feeling better ready to go home Time spent with patient +20 min
--- NOTE | 2020-10-10 11:33 | PC.NURSE ---
discharge paperwork given to pt. all questions answered.
[2020-10-10 11:34] VITALS: BP 124/68; PULSE 67; RESP 16; TEMP 37.2; O2SAT 97
== END 2020-10-10 11:35 | disposition home or self-care (01) ==
LOC: ER 09:47 → OPS 12:11 → MEDSURG 16:38
PROVIDERS: Admitting Provider Surgery; Emergency Provider Nurse Practitioner Family; PCP Family Medicine; Visit Provider Surgery
PROC: 0DTJ4ZZ Resection of Appendix, Percutaneous Endoscopic Approach (ICD-10-PCS; CPT 44970; principal; 2020-10-09 13:30)
DX: K35.80 Unspecified acute appendicitis (principal)
CPT/HCPCS: 44970; 12345; 36415; 74018; 74177; 80048; 80053; 81003; 83690; 85025; 88304; 96361; 96365; 96366; 96375; 99282; 99285; G0378; J0131; J1100; J2270; J2405; J2543; J2704; J3010; J3490; J7030; Q9967

== ENCOUNTER → 2021-04-01 12:06 | Outpatient (BNVA) | payer OTHER, SELFPAY | PROVIDERS: PCP Family Medicine; Visit Provider Nurse Practitioner Family | DX: R31.9 Hematuria, unspecified (principal) | CPT/HCPCS: 81000; 87086 ==

== ENCOUNTER → 2021-10-23 13:03 | Outpatient (BNVA) | payer OTHER, SELFPAY | PROVIDERS: PCP Registered Nurse; Visit Provider Nurse Practitioner | DX: R39.9 Unspecified symptoms and signs involving the genitourinary system (principal); Z20.2 Contact with and (suspected) exposure to infections with a predominantly sexual mode of transmission | CPT/HCPCS: 81000; 87491; 87591 ==

== ENCOUNTER 2022-02-14 10:15 | Outpatient (CLI) | payer OTHER, SELFPAY ==
--- NOTE | 2022-02-14 10:00 | NM_ITS ---
WS: [id number] NUCLEAR MEDICINE HIDA SCAN WITH GALLBLADDER EJECTION FRACTION HISTORY: R10.11 - Right upper quadrant pain COMPARISON: None available. TECHNIQUE: The patient was intravenously injected with 7.5 mCi of TC99m Mebrofenin. Immediate imaging over the right upper quadrant was followed by 5 minute image and additional images for a total of 60 minutes. Normal uptake of radiotracer throughout the liver. Activity identified in the gallbladder at 20 minutes and well distended by 60 minutes. Activity in the proximal small bowel was seen by 50 minutes. Good washout of the radiotracer from the liver by 60 minutes. The patient then drank 8 ounces of Ensure Plus. Ejection fraction at 60 minutes was 78%. Normal GB ej ection fraction is 35-75%. Post fatty meal symptoms: None. NM/NM hepatobiliary w phar* [id number] IMPRESSION: 1. Normal HIDA scan. 2. Normal gallbladder ejection fraction.
== END 2022-02-14 10:16 | disposition home or self-care (01) ==
PROVIDERS: PCP Registered Nurse; Visit Provider Surgery
DX: R10.11 Right upper quadrant pain (principal)
CPT/HCPCS: 78227; A9537

== ENCOUNTER → 2022-03-07 09:14 | Outpatient (BNVA) | payer OTHER, SELFPAY | PROVIDERS: PCP Registered Nurse; Visit Provider Registered Nurse | DX: K90.49 Malabsorption due to intolerance, not elsewhere classified (principal); K21.9 Gastro-esophageal reflux disease without esophagitis; R10.11 Right upper quadrant pain | CPT/HCPCS: 80053; 85025; 86003 ==

== ENCOUNTER → 2022-03-26 09:06 | Outpatient (BNVA) | payer OTHER, SELFPAY | PROVIDERS: PCP Registered Nurse; Visit Provider Registered Nurse | DX: R10.9 Unspecified abdominal pain (principal); R39.9 Unspecified symptoms and signs involving the genitourinary system | CPT/HCPCS: 81000 ==

== ENCOUNTER → 2022-05-28 09:50 | Outpatient (BNVA) | payer OTHER, SELFPAY | PROVIDERS: PCP Registered Nurse; Visit Provider Registered Nurse | DX: R10.9 Unspecified abdominal pain (principal); R39.14 Feeling of incomplete bladder emptying; K52.29 Other allergic and dietetic gastroenteritis and colitis; K21.9 Gastro-esophageal reflux disease without esophagitis; R19.7 Diarrhea, unspecified; R53.83 Other fatigue | CPT/HCPCS: 81000 ==

== ENCOUNTER → 2023-03-20 14:17 | Outpatient (BNVA) | payer MEDICAID, SELFPAY | PROVIDERS: PCP Registered Nurse; Visit Provider Registered Nurse | DX: R55 Syncope and collapse (principal); E16.2 Hypoglycemia, unspecified | CPT/HCPCS: 80053; 81000; 82962; 83036; 85025 ==

== ENCOUNTER → 2024-09-22 13:00 | Outpatient (BNVA) | payer MEDICAID, SELFPAY | PROVIDERS: PCP Registered Nurse; Visit Provider Nurse Practitioner | DX: Z20.2 Contact with and (suspected) exposure to infections with a predominantly sexual mode of transmission (principal) | CPT/HCPCS: 87491; 87591; 87661 ==

== ENCOUNTER → 2025-06-28 09:11 | Outpatient (BNVA) | payer SELFPAY | PROVIDERS: PCP Registered Nurse; Visit Provider Registered Nurse | DX: K52.29 Other allergic and dietetic gastroenteritis and colitis (principal) | CPT/HCPCS: 82785; 86001; 86003; 86008 ==

== ENCOUNTER → 2025-10-11 10:12 | Outpatient (BNVA) | payer SELFPAY | PROVIDERS: PCP Registered Nurse; Visit Provider Registered Nurse | DX: R63.4 Abnormal weight loss (principal); K90.49 Malabsorption due to intolerance, not elsewhere classified | CPT/HCPCS: 80053; 82306; 82607; 82784; 85025; 85651; 86140; 86364 ==